=== PATIENT | male | born 1995 | race Caucasian/White ===

== ENCOUNTER 2017-07-13 17:03 | Emergency (ER) | payer OTHER ==
[~2017-07-13] VITALS: Ht 177.8 cm; Wt 114.9 kg
[2017-07-13 17:28] VITALS: BP 134/92
--- NOTE | 2017-07-13 20:09 | NUR ---
PT. AMBULATES TO ER BED 7
--- NOTE | 2017-07-13 21:10 | NUR ---
21/M CAME IN C/O ABSCESS TO MIDGLUTEAL FOLD C/O 9/10 SEVERE PAIN, NONRADIATING. NO PMH. TOOK TYLENOL OTC FOR PAIN.DENIES N/V/D; SKIN IS PINK/WARM/DRY; AAOX4 WITH EVEN AND STEADY GAIT; LUNGS CLEAR BL; HR EVEN AND REGULAR; PT DENIES ANY FEVER, CP, SOB, OR COUGH AT THIS TIME; VSS; PATIENT POSITIONED FOR COMFORT; HOB ELEVATED; BEDRAILS UP X2; BED DOWN. ER MD MADE AWARE OF PT STATUS.
[2017-07-13] MEDS ORDERED: LIDOCAINE 1% 500 MG/50 ML VIAL INJ ONE (21:35)
--- NOTE | 2017-07-13 21:45 | NUR ---
PREFORMS I AND D AT BEDSIDE
[2017-07-13 22:48] VITALS: BP 128/78
--- NOTE | 2017-07-13 22:49 | NUR ---
Patient discharged with v/s stable. Written and verbal after care instructions given and explained. Patient alert, oriented and verbalized understanding of instructions. Ambulatory with steady gait. All questions addressed prior to discharge. ID band removed. Patient advised to follow up with PMD. Rx of NORCO 5-325MG 1-2 TABS PO EVERY 4 HOURS , MOTRIN 800MG ONE TAB PO 3 TIMES A DAY AND BACTRIM DS 800MG-160MG ONE TAB PO 2 TIMES A DAY X 10 DAYS given. Patient educated on indication of medication including possible reaction and side effects. Opportunity to ask questions provided and answered.
== END 2017-07-13 22:48 | disposition home or self-care (01) ==
LOC: MED 17:03
DX: L02.212 Cutaneous abscess of back [any part, except buttock and flank] (principal); I10 Essential (primary) hypertension; Z88.0 Allergy status to penicillin
CPT/HCPCS: 10060; 99283; J2001